=== PATIENT | male | born 1950 | race Caucasian/White ===

== ENCOUNTER → 2021-09-04 | Outpatient (REF) | payer MEDICARE | LOC: M SFHCDERM 10:02 | PROVIDERS: ATTEND Physician Assistant | DX: L82.1 Other seborrheic keratosis (principal) ==

== ENCOUNTER → 2021-09-26 | Outpatient (REF) | payer MEDICARE | LOC: M SFHCDERM 14:09 | PROVIDERS: ATTEND Nurse Practitioner Family | DX: Z51.89 Encounter for other specified aftercare (principal) ==

== ENCOUNTER → 2023-01-05 | Outpatient (REF) | payer MEDICARE, BC | LOC: M LAB REF 16:32 | PROVIDERS: ATTEND Surgery | DX: D48.5 Neoplasm of uncertain behavior of skin (principal); L92.8 Other granulomatous disorders of the skin and subcutaneous tissue ==